=== PATIENT | male | born 1990 | race Caucasian/White ===

== ENCOUNTER 2017-03-30 05:54 | Day surgery (SDC) | payer OTHER ==
[~2017-03-30] VITALS: Ht 182.9 cm; Wt 132.4 kg
[2017-03-30] MEDS ORDERED: PIOGLITAZONE HC15 MG PO (06:16)
[2017-03-30] MEDS ORDERED: METFORMIN HCL500 M2 PO (06:16)
[2017-03-30] MEDS ORDERED: NORCO 5-325 TA1 EACH PO (11:42)
[2017-03-30] MEDS ORDERED: KEFLEX500 MG PO (11:42)
--- NOTE | 2017-06-15 09:33 | OR ---
[facility] [address], [place] [address] Signed DATE OFSERVICE: 03/30/2017 PREOPERATIVE DIAGNOSIS: Bilateral sinonasal polyposis. POSTOPERATIVE DIAGNOSIS: Bilateral sinonasal polyposis. PROCEDURE: Bilateral intranasal polypectomy, bilateral intranasal ethmoidectomy. SURGEON: Wellington Vee MD ANESTHESIA: General, LMA. [facility] PREOPERATIVE HISTORY: Mr. Jernigan is a 26-year-old male with a long history of sinus problems. He has had polypectomies in the past, none for about 10 years. He has developed further problems with nasal congestion, blockage. CAT scan has shown opacification of the sinuses and intranasal cavity which has been confirmed by endoscopy in the office and he is taken to the operating room for the above-mentioned procedures. OPERATIVE PROCEDURE AND FINDINGS: After informed consent, the patient was taken to The operating room, placed in supine position where general LMA anesthesia was induced. The patient and procedure were verified. The patient received preoperative intravenous Ancef and intranasal oxymetazoline. The preop CT was reviewed throughout. Theleft nostril was approached first with a headlight and speculum. Polypoid material medial to the middle turbinate was removed with Abrahan. The polypoid material appeared to be attached to the inferior edge of the middle turbinate. The middle turbinate was then medialized. Polypoid material removed from the middle meatus. Anterior ethmoids were opened with polypoid material removed. There was a previously created middle meatal antrostomy, with some polypoid material around the antrostomy, which was removed with the Abrahan. Curving curette was used to clean out the maxillary sinus. Minimal bleeding. Packing was placed, pack coated with Neosporin in the middle meatus and the trimmed Merocel pack in the nasal cavity. The same procedure was performed on the right side and similar findings. Specimen was sent to pathology separately left and right sinus contents. Packing was placed on the right. The packing was string tied anteriorly over apad. Hemostasis was verified. The pharynx was suctioned clear of blood and secretions. The patient was then awakened, extubated, and transported to the recovery room in good condition. No complications. BLOOD LOSS: Minimal. Electronically Signed By: WELLINGTON VEE MD 06/15/17 0933 PATIENT NAME: OLIVIA JERNIGAN OPERATIVE REPORT DATE OF : 89 PHYSICIAN: WELLINGTON VEE MD REPORT #: [id number] REPORT IS CONFIDENTIAL AND NOT TO BE RELEASED WITHOUT AUTHORIZATION [facility] [address] [place] [id number] Signed SPECIMEN: To pathology. DRAINS: No drains. PACKING: Two pieces of Merocel, each nostril. Wellington Vee MD GC/Rene / [id number] Electronically Signed By: WELLINGTON VEE MD 06/15/17 0933 PATIENT NAME: OLIVIA JERNIGAN OPERATIVE REPORT DATE OF : 89 PHYSICIAN: WELLINGTON VEE MD REPORT #: [id number] REPORT IS CONFIDENTIAL AND NOT TO BE RELEASED WITHOUT AUTHORIZATION
== END 2017-03-30 12:32 | disposition home or self-care (01) ==
LOC: DS 05:54 → OPS 05:54 → DS 06:45 → OPS 12:32
PROVIDERS: Otolaryngology
PROC: 09BU4ZZ Excision of Right Ethmoid Sinus, Percutaneous Endoscopic Approach (ICD-10-PCS; 2017-03-30)
PROC: 09BV4ZZ Excision of Left Ethmoid Sinus, Percutaneous Endoscopic Approach (ICD-10-PCS; principal; 2017-03-30 06:45)
DX: J33.8 Other polyp of sinus (principal); F32.9 Major depressive disorder, single episode, unspecified; R73.03 Prediabetes; Z98.818 Other dental procedure status; Z98.890 Other specified postprocedural states
CPT/HCPCS: 00160; J0330; J0690; J2405; J2704; J3010; J7120